=== PATIENT | male | born 1955 | race Caucasian/White ===

== ENCOUNTER → 2020-01-23 | Outpatient (CLI) | payer BC ==
[2016-05-23 07:45] VITALS: BP 126/79
[~2020-01-23] MED LIST: ASPI-482 PO; BUPIVACAINE MPF 0.5% 10 ML VIAL for KCIC. IM ONE; CELE200C PO; DESO60CR12 TP; DICY10SO2 PO; DOXA4TAB3 PO; FINA5TAB PO; IOHEXOL 300 MG/ML 50 ML VIAL. INT ART ONE; LIDOCAINE 1% Multi-Dose 20 ML VIAL. ID ONE; MELO15TA6 PO; OMEP40CA2 PO; PRAV40TA2 PO; WARF3TAB50 PO; WARF5TAB2 PO; methylPREDNISolone ACETATE 40 MG/ML VIAL. INT ART ONE
--- NOTE | 2020-01-23 18:12 | KCIC ---
PROCEDURE: Left hip steroid injection under fluoroscopic guidance INDICATION: Left hip osteoarthrosis. CONTRAST: Approximately 3 cc Omnipaque 300 FINDINGS: The risks, benefits and alternatives to the procedure were discussed with the patient. A timeout was performed to confirm the patient's identity and laterality of the injection. Utilizing sterile technique, fluoroscopic guidance and local anesthesia with 1% lidocaine, the left hip joint was accessed utilizing a 3.5" 22-gauge spinal needle. A small amount contrast was used to confirm the intra-articular location of the needle tip. Subsequently, a mixture containing 2 cc (80 mg) Depo-Medrol and 2 cc bupivacaine was injected. There were no immediate complications. Fluoroscopy time: 13 seconds Number of images obtained: 1 Impression: Technically successful left hip steroid injection under fluoroscopic guidance. Electronically signed by: MIKALA GNEAO MD (01/23/2020 6:09 PM) [id number]
== END | disposition home or self-care (01) ==
LOC: KCIC 13:20
PROVIDERS: ATTEND Orthopaedic Surgery
DX: M16.12 Unilateral primary osteoarthritis, left hip (principal)
CPT/HCPCS: 20610; 77002; J1030; J3490; Q9967

== ENCOUNTER → 2020-04-12 | Outpatient (CLI) | payer BC ==
[2016-05-23 07:45] VITALS: BP 126/79
[~2020-04-12] MED LIST changes: -BUPIVACAINE MPF 0.5% 10 ML VIAL for KCIC. IM ONE; -IOHEXOL 300 MG/ML 50 ML VIAL. INT ART ONE; -LIDOCAINE 1% Multi-Dose 20 ML VIAL. ID ONE; +PSYL0.4C2 PO; -methylPREDNISolone ACETATE 40 MG/ML VIAL. INT ART ONE
[2020-04-12 08:57] LABS: BASO % 0 % (0-3); EOS # 0.2 x10^3/uL (0.0-0.7); EOS % 3 % (0-3); HEMATOCRIT 45.7 % (39.0-53.0); HEMOGLOBIN 15.7 g/dL (13.0-17.5); LYMPH # 1.8 x10^3/uL (1.0-4.8); LYMPH % 28 % (24-48); MEAN CORPUSCULAR HEMOGLOBIN 31 pg (25-35); MEAN CORPUSCULAR HGB CONC 34 g/dL (31-37); MEAN CORPUSCULAR VOLUME 91 fL (79-100); MONO # 0.5 x10^3/uL (0.0-1.1); MONO % 8 % (0-9); NEUT # 3.9 x10^3/uL (1.8-7.7); NEUT % 61 % (31-73); PLATELET COUNT 189 x10^3/uL (140-400); RED BLOOD COUNT 5.02 x10^6/uL (4.30-5.70); RED CELL DISTRIBUTION WIDTH 13.4 % (11.5-14.5); WHITE BLOOD COUNT 6.4 x10^3/uL (4.0-11.0)
[2020-04-12 09:10] LABS: ALBUMIN 3.6 g/dL (3.4-5.0); C-REACTIVE PROTEIN 6.3 mg/L (0-3.3); CALCIUM 9.2 mg/dL (8.5-10.1); CREATININE 0.9 mg/dL (0.7-1.3); GFR 84.4; POTASSIUM 4.3 mmol/L (3.5-5.1)
[2020-04-12 09:14] LABS: PROTHROMBIN TIME PATIENT 13.8 SEC (11.7-14.0)
--- NOTE | 2020-04-12 12:37 | EKG ---
[facility] [address] [place] [address] Test Date: 2020-04-12 Test Time: 12:10:49 Pat Name: MIKALA RODRÍGUEZ Department: Room: Gender: M Perinatal Specialist: : [id number] Requested By: TEVIN SCHAEFER Order Number: [id number] Reading MD: Uriel Hernandez Measurements Intervals [place] Rate: 51 P: 10 [place]: 220 QRS: 49 QRSD: 74 T: 66 QT: 420 QTc: 389 Interpretive Statements SINUS RHYTHM PROLONGED WY INTERVAL Electronically Signed On 04-13-2020 10:28:17 FISH HATCHERY MANAGER by Uriel Hernandez
--- NOTE | 2020-04-12 13:00 | RAD ---
EXAM: Chest, 2 views. HISTORY: Hyperlipidemia. COMPARISON: None. FINDINGS: 2 views of chest are obtained. There is no infiltrate, pleural effusion or pneumothorax. There are chronic appearing diffuse interstitial changes. There is a calcified granuloma overlying the right lower thorax. The heart is normal in size. IMPRESSION: Chronic appearing interstitial changes. No acute pulmonary finding. Electronically signed by: Vane Rahman MD (04/12/2020 12:57 PM) [id number]
[2020-04-13 01:09] LABS: HEMOGLOBIN A1C 5.6 % (4.8-5.6)
== END ==
LOC: SURGPAT 12:24
PROVIDERS: ATTEND Orthopaedic Surgery
DX: Z01.818 Encounter for other preprocedural examination (principal); M16.12 Unilateral primary osteoarthritis, left hip; E78.5 Hyperlipidemia, unspecified; Z96.642 Presence of left artificial hip joint
CPT/HCPCS: 36415; 71046; 80048; 82040; 82306; 83036; 85025; 85610; 85730; 86140; 87641; 93005

== ENCOUNTER → 2020-04-27 | Outpatient (CLI) | payer BC ==
[2016-05-23 07:45] VITALS: BP 126/79
[~2020-04-27] MED LIST changes: +ASPI81TA59 PO; +ISOS30TA4 PO; +REGADENOSON 0.4 MG/5 ML DISP.SYRIN. IV ONE
--- NOTE | 2020-04-27 14:03 | RAD ---
MR#: [id number] Date of Study: 04/27/2020 Ordering Physician: RAGHAV LY, Referring Physician: ASHKAN LAW Tech: RUFINO Arredondo, ARRT (R) (N) APPROVED REPORT Test Type: Pharmacological Stress Nurse/Tech: Kinza Garcia R.N. Test Indications: CP with exertion, pre-op clearance Cardiac History: No known cardiac Medications: See Electronic Medical Record Medical History: See Electronic Medical Record Resting ECG: NSR Resting Heart Rate: 61 bpm Resting Blood Pressure: 113/57mmHg Pretest Chest Pain: No chest pain Nurse/Tech Notes S1S2, lungs sounc clear Consent: The procedure was explained to the patient in lay terms. Informed consent was witnessed. Roberto Carlos eout was entered into [employer]. History and Stress Test performed by Kinza Garcia R.N. Pharm. Details Pharmacologic stress testing was performed using 0.4mg per 5ml of regadenoson given intravenously ove r 7-10 seconds. Stress Symptoms No chest pain or symptoms. POST EXERCISE Reason for Termination: Infusion complete Target HR: 130 Max HR: 92 bpm Max Blood Pressure: 119/34mmHg Blood Pressure response to exercise: Normal blood pressure response during stress. Chest Pain: No. Arrhythmia: No. ST Change: No. INTERPRETATION Stress EKG Conclusion: Baseline EKG showed sinus rhythm. No ischemic changes at peak stress. No arr hythmias. Imaging Protocol IMAGE PROTOCOL: Rest Tc-99m/stress Tc-99m 1 day Rest: Stress: Viability: Radiopharm.Tc99m [id number] Sestamibi Tfoc38nGz 33mCi Img Date 04/27/2020 04/27/2020 Inj-Img [id number]. 60min. Rest Admin Site:IV - Right AntecubitalAdministrator:RUFINO Arredondo, ARRT (R)(N) Stress Admin Site: IV - Right AntecubitalAdministrator: RT Lilian (R)(N) STRESS DATA End Diast. Vol.111.0mlAv. Heart Rate66.0bpm End Syst. Vol.41.0mlCO Index BSA4.6L/min Myocardial Akcm369.0gEject. Okzlazjk47.0% Stress Rates Pk. Fill Rate2.71EDV/secLVtime Pk. Fill 124.04msec Pk. Empty Rate3.59ESV/secLVtime Pk. Sbrls430.07msec 1/3 Pk. Fill1.81EDV/sec Stress Scores Regional WT0.00Summed WT3.00 Regional WM0.00Summed WM4.00 LV Perfusion Scintigraphic images showed mixed perfusion defect involving the anterior wall consistent with small infarct and small to moderate amount of ischemia. Wall Motion Distal anterior wall hypokinesis with ejection fraction calculated at 66%. LV Perf. Quant 17 Seg. SSS9.00 17 Seg. SRS6.00 17 Seg. SDS5.00 Stress Defect Extent (% LAD)53.10Rest Defect Extent (% LAD)40.60Rev. Defect Extent (% LAD)31.30 Stress Defect Extent (% LCX) 1.30Rest Defect Extent (% LCX)0.00Rev. Defect Extent (% LCX)1.30 Stress Defect Extent (% RCA)0.00Rest Defect Extent (% RCA)0.00Rev. Defect Extent (% RCA)0.00 Stress Defect Extent (% DANIELLE)23.70Rest Defect Extent (% DANIELLE)15.20Rev. Defect Extent (% DANIELLE)15.40 Conclusion 1. Regadenoson cardioisotope stress test showed small infarct and small to moderate amount of ischemi a involving the anterior wall. 2. Distal anterior wall hypokinesis with ejection fraction calculated at 66%. 3. Intermediate risk for cardiac events. Signed by : Uriel Hernandez, Electronically Approved : 04/27/2020 14:03:19
== END ==
LOC: NM 09:21
PROVIDERS: ATTEND Internal Medicine Cardiovascular Disease
DX: Z01.810 Encounter for preprocedural cardiovascular examination (principal); R07.9 Chest pain, unspecified
CPT/HCPCS: 78452; 93017; A9500; J2785

== ENCOUNTER → 2020-04-28 | Outpatient (CLI) | payer BC ==
[2016-05-23 07:45] VITALS: BP 126/79
[~2020-04-28] MED LIST changes: -REGADENOSON 0.4 MG/5 ML DISP.SYRIN. IV ONE
== END ==
LOC: LAB 14:31
PROVIDERS: ATTEND Internal Medicine Cardiovascular Disease
DX: Z01.812 Encounter for preprocedural laboratory examination (principal); Z20.828 Contact with and (suspected) exposure to other viral communicable diseases
CPT/HCPCS: U0003

== ENCOUNTER 2020-04-30 07:04 | Outpatient (CLI) | payer BC ==
[2020-04-30] VITALS (12 sets, daily range): BP systolic 108–125; BP diastolic 70–80
[~2020-04-30] VITALS: Ht 182.9 cm; Wt 96.2 kg
[~2020-04-30 07:04] MED LIST changes: -ASPI81TA59 PO; -ISOS30TA4 PO
[2020-04-30 07:29] LABS: HEMATOCRIT 47.8 % (39.0-53.0); HEMOGLOBIN 16.3 g/dL (13.0-17.5); RED BLOOD COUNT 5.26 x10^6/uL (4.30-5.70); RED CELL DISTRIBUTION WIDTH 13.1 % (11.5-14.5); WHITE BLOOD COUNT 6.5 x10^3/uL (4.0-11.0)
[2020-04-30] MEDS ORDERED: LIDOCAINE 1% Multi-Dose 20 ML VIAL. ONE (07:31)
[2020-04-30] MEDS ORDERED: HEPARIN for ARTERIAL LINE 1,500 ML ONE (07:32)
[2020-04-30] MEDS ORDERED: IODIXANOL 320 MG/ML 100 ML VIAL. ONE (07:32)
[2020-04-30 07:43] LABS: CALCIUM 9.2 mg/dL (8.5-10.1); GFR 74.8; POTASSIUM 4.1 mmol/L (3.5-5.1); PROTHROMBIN TIME PATIENT 13.2 SEC (11.7-14.0)
[2020-04-30] MEDS ORDERED: ASPI81TA59 PO (07:47)
[2020-04-30] MEDS ORDERED: VERAPAMIL 5 MG/2 ML VIAL. ONE (08:04)
[2020-04-30] MEDS ORDERED: fentaNYL PF VIAL 100 MCG/2 ML VIAL ONE (08:04)
[2020-04-30] MEDS ORDERED: HEPARIN for IV BOLUS 10,000 UNIT/10 ML VIAL. ONE (08:04)
[2020-04-30] MEDS ORDERED: NITROGLYCERIN 200 MCG/2 ML SYRINGE FOR CATH/VASC LAB. ONE (08:04)
[2020-04-30] MEDS ORDERED: MIDAZOLAM HCL/PF 2 MG/2 ML VIAL. ONE ×2 (08:04→09:15)
[2020-04-30] MEDS ORDERED: fentaNYL PF VIAL 100 MCG/2 ML VIAL IV ONE (08:15)
[2020-04-30] MEDS ORDERED: IODIXANOL 320 MG/ML 100 ML VIAL. IART ONE (08:15)
[2020-04-30] MEDS ORDERED: HEPARIN for IV BOLUS 10,000 UNIT/10 ML VIAL. IART ONE (08:15)
[2020-04-30] MEDS ORDERED: NITROGLYCERIN 200 MCG/2 ML SYRINGE FOR CATH/VASC LAB. IART ONE (08:15)
[2020-04-30] MEDS ORDERED: VERAPAMIL 5 MG/2 ML VIAL. IART ONE (08:15)
[2020-04-30] MEDS ORDERED: LIDOCAINE 1% Multi-Dose 20 ML VIAL. INJ ONE (08:15)
[2020-04-30] MEDS ORDERED: MIDAZOLAM HCL/PF 2 MG/2 ML VIAL. IV ONE (08:15)
--- NOTE | 2020-04-30 09:03 | PDOC ---
MODERATE SEDATION ASSESSMENT RISKS/ALTERNATIVES Risks/Alternatives Risks and alternatives of this type of sedation and procedure discussed with: RISK/ALTERNATIVES: Patient H & P ON CHART H & P H & P on chart and reviewed for co-morbid conditions and appropriate labs. H&P ON CHART: Yes STATUS PREG STATUS ASSESSED: N/A MEDS/ALLERGIES REVIEWED Meds/Allergies Reviewed Medications and Allergies including time and route of recently administered narcotics and sedatives. MEDS/ALLERGIES REVIEWED: Yes ASA RATING ASA RATING: II AIRWAY ASSESSMENT Airway Assessment Airway patency, oral function limitations, presence of caps, crowns, dentures, partials, and ability to extend neck assessed. AIRWAY ASSESSMENT: Yes MALLAMPATI SCORE MALLAMPATI SCORE: II PRE-SEDATION ASSESSMENT PRE-SEDATION ASSESSMENT: Yes FAB RIOS MD Apr 30, 2020 09:03
--- NOTE | 2020-04-30 09:42 | CARD ---
MR#: [id number] Date of Study: 04/30/2020 Ordering Physician: RAGHAV LY, Referring Physician: RAGHAV LY, Tech: GRICELDA BANEGAS RTR APPROVED REPORT Technologist: GRICELDA BANEGAS RTR Nurse: Annie Thomason RN Procedure(s) performed: Left heart catheterization, selective coronary angiography and left ventricul ography via right transradial approach MODERATE SEDATION TIME: 30 MINUTES FLUORO TIME: 2.9 MINUTES DOSE: 47.3 GYCM2 CONTRAST: 107CC VISI INDICATION The indication(s) include : Preoperative evaluation, chest pain and positive stress test. CS Clinical Frailty Scale CS Clinical Frailty Scale: Managing Well Heart Failure Heart Failure: No PROCEDURE NARRATIVE After explaining the risks, benefits and alternative options, informed consent was obtained from kelsey ent. Patient was brought to the cardiac Fulfillment Coordinator and right wrist was prepped and draped in the usual fashion after confirming a positive modified Cem's test. Arterial access was obtained in the righ t radial artery and a 6 [place] sheath was inserted. 6 [place] Anders catheter was used to perform ki ective angiography of the left and right coronary arteries. 6 [place] pigtail catheter was used to pe rform left ventriculography. Patient tolerated the procedure well. Hemostasis was achieved using TR band. There were no immediate complications. The following findings were noted. FINDINGS 1. Hemodynamics: Left ventricular end-diastolic pressure of 10 mmHg. No pullback gradient across th e aortic valve. 2. Left ventriculography: Normal left ventricle systolic function with ejection fraction estimated at 55%. No significant mitral regurgitation seen. 3. Coronary angiography: a. The left main coronary artery arose from the left sinus of Valsalva, gave rise to the left anteri or descending and left circumflex arteries and did not show any significant stenosis. b. The left anterior descending artery showed 30% stenosis in the midsegment. The diagonal branch w hich is a small to medium caliber vessel showed 90% stenosis in the proximal segment. c. The left circumflex artery did not show any significant stenosis. d. The right coronary artery was a large and dominant vessel arising from the right sinus of Valsalv a that did not show any significant stenosis. Conclusion 1. 90% stenosis involving small to medium caliber diagonal branch of left anterior descending artery . No other significant stenosis noted. 2. Normal left ventricle systolic function with ejection fraction estimated at 55 to 60%. Recommendations Since major coronary arteries did not show any significant stenosis and the diagonal branch that show ed 90% stenosis is a small to medium caliber vessel, we will manage this medically. Start Imdur for antianginal therapy. Continue aspirin. Patient is cleared for surgery from cardiac standpoint. Signed by : Uriel Hernandez, Electronically Approved : 04/30/2020 09:41:56
[2020-04-30] MEDS ORDERED: IV 1/2 NORMAL SALINE 1,000 ML IV SCH (09:45)
[2020-04-30] MEDS ORDERED: ISOS30TA4 PO (09:54)
--- NOTE | 2020-04-30 12:15 | NUR ---
pt A&O x4. denies pain. removed TR band off rt radial site. no bleeding noted. cleaned area, new dressing applied. armboard reapplied to rt hand/wrist area. pt tolerating po well. ambulated to BR w/o problem. VSS. d/c instructions given, including info on new medication, Isosorbide, which was called into pharmacy. questions answered. out to vehicle per w/c. pt's to drive him home.
[2020-05-01] MEDS ORDERED: ISOSORBIDE MONONITRATE ER 30 MG TAB.ER.24H PO SCH (09:00)
[2020-05-04] MEDS ORDERED: WARF-31 PO (09:02)
[2020-05-04] MEDS ORDERED: MELO15TA23 PO (09:03)
== END 2020-04-30 12:15 | disposition home or self-care (01) ==
LOC: CCL 07:04
PROVIDERS: ATTEND Internal Medicine Cardiovascular Disease
DX: R07.9 Chest pain, unspecified (principal); R94.39 Abnormal result of other cardiovascular function study; I10 Essential (primary) hypertension; M19.90 Unspecified osteoarthritis, unspecified site; K21.9 Gastro-esophageal reflux disease without esophagitis; E78.00 Pure hypercholesterolemia, unspecified; F17.210 Nicotine dependence, cigarettes, uncomplicated; Z88.1 Allergy status to other antibiotic agents; Z88.2 Allergy status to sulfonamides; Z79.899 Other long term (current) drug therapy; Z98.890 Other specified postprocedural states; Z82.49 Family history of ischemic heart disease and other diseases of the circulatory system; Z83.3 Family history of diabetes mellitus; Z72.89 Other problems related to lifestyle; Z20.828 Contact with and (suspected) exposure to other viral communicable diseases
CPT/HCPCS: 36415; 80048; 85027; 85610; 87426; 93458; 99152; 99153; C1769; C1892; J1644; J2250; J3010; J3490; Q9967